=== PATIENT | female | born 1960 | race Caucasian/White ===

== ENCOUNTER → 2017-09-15 19:32 | Outpatient (CLI) | payer BC ==
[2012-12-28 12:58] VITALS: BMI 27.2
[~2017-09-15 19:32] MED LIST: ADVIL200 MG PO; BAYER CHEWABLE81 MG PO; VASOTEC20 MG PO
== END | disposition home or self-care (01) ==
LOC: D.MAMMO 15:30
DX: Z12.31 Encounter for screening mammogram for malignant neoplasm of breast (principal)

== ENCOUNTER 2020-03-13 16:30 | Outpatient (CLI) | payer BC ==
[2012-12-28 12:58] VITALS: BMI 27.2
== END 2020-03-13 23:59 | disposition home or self-care (01) ==
LOC: D.MAMMO 16:30
PROVIDERS: ATTEND Family Medicine
DX: Z12.31 Encounter for screening mammogram for malignant neoplasm of breast (principal)